=== PATIENT | male | born 1970 | race Caucasian/White ===

== ENCOUNTER 2017-07-22 00:35 | Emergency (ER) | payer SELFPAY ==
[2017-07-22] MEDS ORDERED: DEXAMETHASONE SOD PHOS INJ 10 MG/1 ML VIAL IM ONE (01:27)
[2017-07-22] MEDS ORDERED: KETOROLAC TROMETHAMINE INJ/PF 30 MG/1 ML SDV IV ONE (01:27)
[2017-07-22] MEDS ORDERED: CLINDAMYCIN 600 MG/D5W RTU 600 MG/50 ML RTUPB IV ONE (01:28)
--- NOTE | 2017-07-22 01:34 | ER Document Report ---
ED Medical Screen (RME) - General Chief Complaint: Toothache Stated Complaint: TOOTH PROBLEMS Time Seen by Provider: 07/22/17 00:51 Mode of Arrival: Ambulatory Information source: Patient Notes: 47-year-old male presents to ED for complaint of dental pain severe to tooth 9, 10, and 11 with swelling to the left side of his face all the way up to including his right eye swollen shut. He states he went in to see his doctor yesterday and was started on clindamycin 300 mg 3 times daily. He states he took 3 doses yesterday as well as Ultracet and the pain and swelling is worse now than it was yesterday morning. He states he knows that he needs to go to the dentist and get these teeth fixed but he became very scared when his face increased and swelling instead of getting better after he took the antibiotics. He states his only past medical history is asthma he has no history of diabetes or blood pressure problems. He states he is allergic to Keflex amoxicillin and penicillin. I discussed this patient with Dr. De Los Santos and have ordered the CBC chemistry CT with IV contrast of the face. I have also ordered as he recommended Toradol Decadron and clindamycin IV. I have greeted and performed a rapid initial assessment of this patient. A comprehensive ED assessment and evaluation of the patient, analysis of test results and completion of medical decision making process will be conducted by an additional ED providers. TRAVEL OUTSIDE OF THE [place] IN LAST 30 DAYS: No - Related Data Allergies/Adverse Reactions: amoxicillin [Amoxicillin] Allergy (Verified 11/22/14 00:06) cephalexin monohydrate [From Keflex] Allergy (Verified 11/22/14 00:06) Penicillins Allergy (Verified 11/21/14 23:50) Past Medical History Pulmonary Medical History: Reports: Hx Asthma Renal/ Medical History: Denies: Hx Peritoneal Dialysis GI Medical History: Reports: Hx Gastroesophageal Reflux Disease Musculoskeltal Medical History: Reports Hx Musculoskeletal Trauma - left leg Psychiatric Medical History: Reports: Hx Attention Deficit Hyperactivity Disorder, Hx Post Traumatic Stress Disorder Traumatic Medical History: Reports: Hx Fractures - Immunizations Immunizations up to date: Yes Hx Diphtheria, Pertussis, Tetanus Vaccination: Yes - 2011 Physical Exam - Vital signs Vitals: Temp Pulse Resp BP Pulse Ox 98.8 F 62 16 178/87 H 95 07/22/17 00:45 07/22/17 00:45 07/22/17 00:45 07/22/17 00:45 07/22/17 00:45 Course - Vital Signs Vital signs: Temp Pulse Resp BP Pulse Ox 98.8 F 62 16 178/87 H 95 07/22/17 00:45 07/22/17 00:45 07/22/17 00:45 07/22/17 00:45 07/22/17 00:45
--- NOTE | 2017-07-22 01:55 | ER Document Report ---
ED Oral Problem - General Chief Complaint: Toothache Stated Complaint: TOOTH PROBLEMS Time Seen by Provider: 07/22/17 00:51 Mode of Arrival: Ambulatory Notes: The patient is a 47-year-old male, past medical history hypertension, presents with increasing facial swelling and dental pain. He was started on clindamycin yesterday and took 2 doses, but feels like the swelling is worsening. He denies difficulty swallowing, trismus, fevers, neck stiffness, headache, blurry vision, stridor or shortness of breath. TRAVEL OUTSIDE OF THE [place] IN LAST 30 DAYS: No - Related Data Allergies/Adverse Reactions: amoxicillin [Amoxicillin] Allergy (Verified 11/22/14 00:06) cephalexin monohydrate [From Keflex] Allergy (Verified 11/22/14 00:06) Penicillins Allergy (Verified 11/21/14 23:50) Past Medical History - General Information source: Patient - Social History Smoking Status: Unknown if Ever Smoked Family History: Arthritis, CAD, CVA, DM, Hyperlipidemia, Hypertension, Malignancy. denies: Thyroid Disfunction Patient has suicidal ideation: No Patient has homicidal ideation: No Pulmonary Medical History: Reports: Hx Asthma Renal/ Medical History: Denies: Hx Peritoneal Dialysis GI Medical History: Reports: Hx Gastroesophageal Reflux Disease Musculoskeltal Medical History: Reports Hx Musculoskeletal Trauma - left leg Psychiatric Medical History: Reports: Hx Attention Deficit Hyperactivity Disorder, Hx Post Traumatic Stress Disorder Traumatic Medical History: Reports: Hx Fractures - Immunizations Immunizations up to date: Yes Hx Diphtheria, Pertussis, Tetanus Vaccination: Yes - 2011 Review of Systems - Review of Systems Notes: REVIEW OF SYSTEMS: CONSTITUTIONAL: -fevers, -chills EENT: -eye pain, -difficulty swallowing, -nasal congestion, +dental pain and facial swelling CARDIOVASCULAR: -chest pain, -syncope. RESPIRATORY: -cough, -SOB GASTROINTESTINAL: -abdominal pain, -nausea, -vomiting, -diarrhea GENITOURINARY: -dysuria, -hematuria MUSCULOSKELETAL: -back pain, -neck pain HEMATOLOGIC: -easy bruising or bleeding. LYMPHATIC: -swollen, enlarged glands. NEUROLOGICAL: -altered mental status or loss of consciousness, -headache, - neurologic symptoms PSYCHIATRIC: -anxiety, -depression. ALL OTHER SYSTEMS REVIEWED AND NEGATIVE. Physical Exam - Vital signs Vitals: Temp Pulse Resp BP Pulse Ox 98.8 F 62 16 178/87 H 95 07/22/17 00:45 07/22/17 00:45 07/22/17 00:45 07/22/17 00:45 07/22/17 00:45 - Notes Notes: PHYSICAL EXAMINATION: GENERAL: Well-appearing, well-nourished and in no acute distress. EYES: Pupils equal round and reactive to light, extraocular movements intact, sclera anicteric, conjunctiva are normal. Mild periorbital swelling. ENT: Poor dentition and swelling of upper left frontal canine. Nares patent, oropharynx clear without exudates. Moist mucous membranes. NECK: Normal range of motion, supple without lymphadenopathy LUNGS: Mild wheezing. No respiratory distress. HEART: Regular rate and rhythm without murmurs ABDOMEN: Soft, nontender, normoactive bowel sounds. No guarding, no rebound. No masses appreciated. EXTREMITIES: Normal range of motion, no pitting or edema. No cyanosis. NEUROLOGICAL: Cranial nerves grossly intact. Normal speech, normal gait. Normal sensory and motor exams. PSYCH: Normal mood, normal affect. SKIN: Left cheek and periorbital cellulitis Course - Re-evaluation Re-evalutation: Patient appears well and is in no respiratory distress. He did have some mild wheezing which resolved after DuoNeb and Decadron. Concern for facial abscess, so CT facial was ordered and this did not show any evidence of an abscess. It did show evidence of facial cellulitis plus the cavity. Pt's facial cellulitis already improved while in the emergency room after his IV dose of clindamycin. Instructed him to continue the antibiotics and will send home with albuterol. He lives 4 hours away and has an oral surgeon that he will call in the morning for an appointment. - Vital Signs Vital signs: Temp Pulse Resp BP Pulse Ox 98.8 F 62 16 178/87 H 95 07/22/17 00:45 07/22/17 00:45 07/22/17 00:45 07/22/17 00:45 07/22/17 00:45 - Laboratory Result Diagrams: 07/22/17 02:04 07/22/17 02:04 Laboratory results interpreted by me: 07/22/17 07/22/17 02:04 02:04 WBC 15.4 H RDW 14.4 H Seg Neutrophils % 83.2 H Lymphocytes % 9.3 L Absolute Neutrophils 12.8 H Glucose 111 H - Diagnostic Test Radiology reviewed: Image reviewed, Reports reviewed Radiology results interpreted by me: CT Facial: 1. Periapical lucency involving the left second mandibular molar is compatible with dental caries. 2. Edema in the subcutaneous soft tissues overlying the left mandible may be reactive or could represent cellulitis. No well-circumscribed abscess formation. Discharge - Discharge Clinical Impression: Cellulitis of face, Dental cavity, Wheezing Condition: Stable Disposition: HOME, SELF-CARE Additional Instructions: Continue your clindamycin to help with your facial cellulitis. Return to the ER if you have difficulty swallowing, trouble breathing or any other concerns. Call your oral surgeon for an urgent appointment. TOOTHACHE: Your pain is due to dental decay. The tooth must be repaired in order for you to feel better. You will, therefore, be referred to a dentist. We do not have dentists on the staff at [facility]. Severe swelling or drainage around a tooth usually means a dental abscess. This also requires evaluation and treatment by the dentist, but antibiotics may be prescribed while awaiting dental treatment. You should be rechecked immediately if you develop major swelling of the face, increasing pain, a lump in the jaw or gums, headache, difficulty swallowing, or fever. CLINDAMYCIN: You have been given a prescription for the antibiotic clindamycin. It is often prescribed for infections in the mouth, such as dental infections or abscesses, and for skin infections due to MRSA. It's important that you take all the medication, unless instructed otherwise by your physician. Failure to complete the entire course can result in relapse of your condition. Common side effects of antibiotics include nausea, intestinal cramping, or diarrhea. Women may develop vaginal yeast infections, and babies can get yeast (thrush) in the mouth following the use of antibiotics. Contact your physician if you develop significant side effects from this medication. Allergy to this antibiotic can result in hives, wheezing, faintness, or itching. If symptoms of allergy occur, stop the medication and call the doctor. FOLLOW-UP CARE: You have been referred for follow-up care to the dentists listed below. Call the dentists office for an appointment as you were instructed or within the next two days. If you experience worsening or a significant change in your symptoms, notify the physician immediately or return to the Emergency Department at any time for re-evaluation. [facility] [address] [place] mornings, by appointment [facility] [address] [place] [address] [facility] [address] [facility] [address] [facility] [address] [facility] [email or web address] [address] [place] [address] Wednesday- 8:00am to 5:00 pm Will see patients from other [facility]. Charges based on income and family size and accepts Medicare, Medicaid, and Insurances Will pull molars [facility] [address] Hours of Operation 8:00 am - 4:30 pm weekdays The following dental offices accept Medicaid: [facility] Dr. Tyler Dr. Herrera Dr. Beltran Dr. Duran Ferny Yates L[place], and Liliane oral surgery Dr. Baker ([place]) Dr. Reed ([place]) [facility] Drs. Alva and Kofi ([place]) Dr. Yeboah ([place]) [facility] Dr. Harris ([place]) Drs. Flores and ([place]) Medicaid Care Line Prescriptions: Albuterol Sulfate [Proair HFA Inhalation Aerosol 8.5 gm MDI] 2 puff IH Q4H PRN # 1 mdi PRN Reason: Forms: Elevated Blood Pressure Referrals: GELY BERGMAN MD [ACTIVE STAFF] - Follow up as needed
[2017-07-22 02:34] LABS: ABSOLUTE EOSINOPHILS # (AUTO) 0.1 10^3/uL (0.0-0.6); ABSOLUTE LYMPHOCYTES (AUTO) 1.4 10^3/uL (0.5-4.7); ABSOLUTE NEUT (AUTO) 12.8 10^3/uL (1.7-8.2); BASOPHILS % (AUTO) 0.2 % (0-2); EOSINOPHILS % (AUTO) 0.7 % (0-6); HEMATOCRIT 41.6 % (37.9-51.0); HEMOGLOBIN 13.9 g/dL (13.5-17.0); LYMPHOCYTES % (AUTO) 9.3 % (13-45); MEAN CORPUSCULAR HEMOGLOBIN 30.7 pg (27.0-33.4); MEAN CORPUSCULAR HGB CONC 33.4 g/dL (32.0-36.0); MEAN CORPUSCULAR VOLUME 92 fl (80-97); MONOCYTES % (AUTO) 6.6 % (3-13); PLATELET COUNT 214 10^3/uL (150-450); RED BLOOD COUNT 4.53 10^6/uL (4.35-5.55); RED CELL DISTRIBUTION WIDTH 14.4 % (11.5-14.0); SEGMENTED NEUTROPHILS % (AUTO) 83.2 % (42-78); TOTAL CELLS COUNTED % (AUTO) 100 %; WHITE BLOOD COUNT 15.4 10^3/uL (4.0-10.5)
[2017-07-22 02:50] LABS: ANION GAP 10 (5-19); BLOOD UREA NITROGEN 12 mg/dL (7-20); CARBON DIOXIDE 28 mmol/L (22-30); CHLORIDE 102 mmol/L (98-107); GLUCOSE 111 mg/dL (75-110); POTASSIUM 4.4 mmol/L (3.6-5.0); SODIUM 140.4 mmol/L (137-145)
[2017-07-22] MEDS ORDERED: IPRATROPIUM/ALBUTEROL 0.5-2.5 MG/3 ML AMPUL NEB ONE (02:53)
--- NOTE | 2017-07-22 03:36 | RADIOLOGY REPORT (SQ) ---
EXAM DESCRIPTION: Maxillofacial CT with contrast CLINICAL HISTORY: dental infection with facial swelling COMPARISON: None available TECHNIQUE: Axial CT images of the facial bones obtained following the uncomplicated intravenous administration of 75 mL Isovue-370. FINDINGS: There is edema in the subcutaneous soft tissues overlying the left maxillary region. There is periapical lucency surrounding the left second mandibular molar. There is medial cortical disruption. No well-circumscribed abscess formation. Visualized orbits and globes are unremarkable. No facial bone fractures identified. Minimal mucosal thickening of the maxillary sinuses. The frontal sinuses and sphenoid sinuses are relatively well aerated. Mastoid air cells are well aerated. No abnormalities of the visualized portions of the calvarium or skull base. Visualized cervical spine is intact. Visualized intracranial contents demonstrate no gross abnormalities. Visualized parotid and submandibular glands are unremarkable. No definite cervical lymphadenopathy. No definite vascular abnormalities identified. No abnormalities in the visualized pharyngeal mucosal space, parapharyngeal space, or retropharyngeal space. The tongue base is symmetric. DLP: 585.14 mGy-cm IMPRESSION: 1. Periapical lucency involving the left second mandibular molar is compatible with dental caries. 2. Edema in the subcutaneous soft tissues overlying the left mandible may be reactive or could represent cellulitis. No well-circumscribed abscess formation. This exam was performed according to our departmental dose-optimization program, which includes automated exposure control, adjustment of the mA and/or kV according to patient size and/or use of iterative reconstruction technique.
[2017-07-22 04:47] VITALS: BP 127/72
== END 2017-07-22 04:43 | disposition home or self-care (01) ==
LOC: ER 00:35
DX: L03.211 Cellulitis of face (principal); L03.213 Periorbital cellulitis; K02.9 Dental caries, unspecified; K08.89 Other specified disorders of teeth and supporting structures; I10 Essential (primary) hypertension; J45.909 Unspecified asthma, uncomplicated; Z88.0 Allergy status to penicillin; Z88.1 Allergy status to other antibiotic agents
CPT/HCPCS: 94640; 99284; 96372; 96375; 96365; 36415; 85025; 80048; 70487; J1885; J1100; J7620